=== PATIENT | female | born 1975 | race Caucasian/White ===

== ENCOUNTER 2018-05-31 22:48 | Emergency (ER) | payer OTHER ==
[~2018-05-31] VITALS: Ht 157.4 cm; Wt 90.3 kg
[2018-05-31 22:50] VITALS: BP 131/73
[2018-05-31] MEDS ORDERED: FLAGYL500 MG PO (23:30)
[2018-05-31] MEDS ORDERED: DOXYCYCLINE100 M3 PO (23:30)
== END 2018-05-31 23:30 | disposition home or self-care (01) ==
LOC: ED 22:48
DX: S71.111A Laceration without foreign body, right thigh, initial encounter (principal); S71.131A Puncture wound without foreign body, right thigh, initial encounter; Z23 Encounter for immunization; Z88.0 Allergy status to penicillin; Z90.49 Acquired absence of other specified parts of digestive tract; W54.0XXA Bitten by dog, initial encounter; Y93.01 Activity, walking, marching and hiking; Y92.098 Other place in other non-institutional residence as the place of occurrence of the external cause; Y99.8 Other external cause status

== ENCOUNTER 2021-03-25 07:19 | Emergency (ER) | payer BC ==
[~2021-03-25] VITALS: Wt 88.0 kg
[~2021-03-25 07:19] MED LIST: DOXYCYCLINE100 M3 PO; FLAGYL500 MG PO; VIBRAMYCIN100 MG PO
[2021-03-25 07:26] VITALS: BP 121/69
== END 2021-03-25 08:49 | disposition home or self-care (01) ==
LOC: ED 07:19
DX: U07.1 COVID-19 (principal); J22 Unspecified acute lower respiratory infection; Z88.0 Allergy status to penicillin